=== PATIENT | female | born 1970 | race Caucasian/White ===

== ENCOUNTER 2019-10-16 16:41 | Outpatient (CLI) | payer BC, SELFPAY ==
--- NOTE | ~2019-10-16 | MM_ITS ---
EXAMINATION: MM screening [facility] w issac HISTORY: Screening mammogram TECHNIQUE: Craniocaudal and mediolateral oblique 3-D tomosynthesis images were obtained and synthetic 2-D images were generated. CAD analysis was submitted and interpreted. COMPARISON: Comparison to multiple prior studies sequentially, with oldest reviewed study dated 09/2012. BREAST PARENCHYMAL COMPOSITION: The breasts are heterogeneously dense, which may obscure small masses . FINDINGS: There is no evidence of suspicious mass, calcification, or architectural distortion to sugg est malignancy in either breast. There has been no suspicious interval change. IMPRESSION: 1. No mammographic evidence of malignancy. 2. Recommend routine screening mammography in one year. BI-RADS Category 1: Negative Reviewed, dictated and finalized at location A.
== END 2019-10-16 16:42 | disposition home or self-care (01) ==
LOC: ANHIMG 16:44
PROVIDERS: PCP Student in an Organized Health Care Education/Training Program; Visit Provider Student in an Organized Health Care Education/Training Program
DX: Z12.31 Encounter for screening mammogram for malignant neoplasm of breast (principal)
CPT/HCPCS: 77063; 77067

== ENCOUNTER 2021-05-29 13:21 | Outpatient (CLI) | payer OTHER, SELFPAY ==
--- NOTE | ~2021-05-29 | US_ITS ---
EXAMINATION: US pelvic complete w TV DATE: 05/29/2021 14:12 INDICATION: Evaluate IUD position. Pelvic pain. Comparison:No prior studies for comparison. TECHNIQUE: Multiple transabdominal and endovaginal sonographic images of the pelvis performed. FINDINGS: The uterus measures 9.4 x 4.6 x 5.2 cm. IUD present in the endometrium in expected position . The endometrial complex measures 5 mm. The right ovary measures 2.2 x 1.8 x 2.4 cm and the left ovary measures 3.3 x 1.7 x 1.7 cm. There ar e small follicles in each ovary. Normal doppler signal in both ovaries. There is no free fluid in the pelvis. There are no abnormal masses seen on either side. IMPRESSION: 1. Unremarkable pelvic ultrasound. IUD located in the endometrium. Reviewed, dictated and finalized at location A.
== END 2021-05-29 13:22 ==
PROVIDERS: Visit Provider Student in an Organized Health Care Education/Training Program
DX: Z30.431 Encounter for routine checking of intrauterine contraceptive device (principal); R10.2 Pelvic and perineal pain
CPT/HCPCS: 76830; 76856

== ENCOUNTER 2021-08-04 01:13 | Day surgery (SDC) | payer OTHER, SELFPAY ==
[2021-04-23 08:34] VITALS: BMI 26.6
--- NOTE | 2021-05-07 12:03 | PC.NURSE ---
Patient states no changes in health history or medications since previous phone call. Updated on new arrival times. No questions at this time.
[2021-06-08 13:51] VITALS: BMI 29.0
[2021-07-16 13:21] VITALS: BMI 29.0
[2021-08-04 09:00] VITALS: BP 149/94; PULSE 95; RESP 18; TEMP 36.6; O2SAT 98
[2021-08-04] MEDS: LACTATED RINGERS 1,000 ML 150 ML IV CONT (09:04)
--- NOTE | 2021-08-04 09:15 | PM.HPGS ---
History of Present Illness History of Present Illness Consent: Risks, benefits, and alternatives have been discussed and questions answered. Patient agrees to proceed with procedure. Chief complaint: neoplasm screening Narrative: Tawana Duke is a 50 year old female here for first screening colonoscopy Review of Systems Constitutional: Constitutional: Denies headache(s) and Denies weakness Eyes: Eyes: Denies blurry vision ENT: Reports Normal hearing present, Denies headache(s) and Denies neck pain Cardiovascular: Cardiovascular: Denies chest pain and Denies dyspnea Respiratory: Respiratory: Denies dyspnea Gastrointestinal: Gastrointestinal: Reports no additional gastrointestinal complaints Genitourinary: Genitourinary: Denies dysuria Musculoskeletal: Musculoskeletal: Denies neck pain Integumentary/Breasts: Skin/Breast: Denies dry skin Neurologic: Reports Normal hearing present, Denies headache(s) and Denies weakness Psychiatric: Psychiatric: Denies anxiety Endocrine: Endocrine: Denies change in body appearance Hematologic/Lymphatic: Hematologic/Lymphatic: Denies easy bleeding Allergic/Immunologic: Allergic/Immunologic: Denies urticaria PMFSH Past Medical History Medical History (Updated 08/04/21 @ 09:15 by Govidn Becker MD) Anxiety Colon cancer screening Vaginal delivery x 2 Surgical History Surgical History History of colposcopy 1997 for Dysplasia History of mandibular surgery [place] teeth removed Family History Family History Mother Family history of malignant neoplasm of breast in first degree relative Social History Social History (Updated 07/03/21 @ 07:59 by Allyn Carbone MA) Years smoked: 15 Smoking status: Former smoker Second hand tobacco smoke exposure: No Alcohol intake: current Drinks per week: 2 Living arrangements: alone Spiritual care concerns: No Meds Home Medications and Allergies Home Medications Medication Instructions Recorded Confirmed Type multivitamin 1 tablet PO DAILY 03/24/21 08/04/21 History venlafaxine 75 mg capsule,extended 75 mg PO DAILY 03/24/21 08/04/21 History release 24 hr norethindrone (contraceptive) 0.35 0.35 mg PO DAILY #84 tablet 06/18/21 08/04/21 Rx mg tablet irbesartan 150 mg PO DAILY 08/03/21 08/04/21 History Allergies Allergy/AdvReac Type Severity Reaction Status Date / Time No Known Allergies Allergy Verified 08/04/21 08:59 Vital Signs Vital Signs - 24 hr 08/04/21 09:00 Temperature 97.8 F Pulse Rate 95 Respiratory Rate 18 Blood Pressure 149/94 H Pulse Oximetry 98 Exam Const: General: comfortable and no acute distress HENMT: General nose exam: Normal nares present Eyes: General: appearance normal, both eyes and all related structures Neck: Neck: no JVD Resp: Auscultation: clear to auscultation bilaterally Cardio: Rate: regular rate Rhythm: regular rhythm GI: Inspection: non-distended GI Palp: Yes Soft to palpation Skin: General skin exam: normal color Neuro: General: gait normal Speech: normal speech Extrem: General: normal to inspection Psych: Mental Status: mental status grossly normal Assessment and Plan Assessment and plan (1) Colon cancer screening: Code(s): Z12.11 - Encounter for screening for malignant neoplasm of colon Status: Acute Assessment and Plan: colonoscopy
--- NOTE | 2021-08-04 09:16 | P.PNAN_ITS ---
Anes - Initial Pre Proc Eval Procedure: Operation Date: 08/04/21 10:30 Proposed Procedures p Screening Colonoscopy - Govind Becker MD Date/Time: 08/04/21 09:16 Surgeon: Govind Becker MD Pre Op Diagnosis: neoplasm screening Patient Data Age: 50 Gender: F Height: 1.7 m Weight: 84.3 kg Last Vital Signs Temp 97.8 F 08/04/21 09:00 Pulse 95 08/04/21 09:00 Resp 18 08/04/21 09:00 BP 149/94 H 08/04/21 09:00 Pulse Ox 98 08/04/21 09:00 Allergies Allergy/AdvReac Type Severity Reaction Status Date / Time No Known Allergies Allergy Verified 08/04/21 08:59 Home Medications Medication Instructions Recorded Confirmed Type multivitamin 1 tablet PO DAILY 03/24/21 08/04/21 History venlafaxine 75 mg capsule,extended 75 mg PO DAILY 03/24/21 08/04/21 History release 24 hr norethindrone (contraceptive) 0.35 0.35 mg PO DAILY #84 tablet 06/18/21 08/04/21 Rx mg tablet irbesartan 150 mg PO DAILY 08/03/21 08/04/21 History Patient hx anesthesia problems: none Family hx anesthesia problems: none Results Review: All pre-operative results and documents have been reviewed as part of the pre-operative evaluation. [facility] Past Medical History Medical History (Updated 08/04/21 @ 09:15 by Govind Becker MD) Anxiety Colon cancer screening Vaginal delivery x 2 Surgical History Surgical History History of colposcopy 1997 for Dysplasia History of mandibular surgery [place] teeth removed Family History Family History Mother Family history of malignant neoplasm of breast in first degree relative Social History Social History (Updated 07/03/21 @ 07:59 by Allyn Carbone MA) Years smoked: 15 Smoking status: Former smoker Second hand tobacco smoke exposure: No Alcohol intake: current Drinks per week: 2 Living arrangements: alone Spiritual care concerns: No Anes - Eval Final PreProcedure Day of Procedure 08/04/21 09:16 Patient weight: obese Heart: regular rate and rhythm Lungs: clear to auscultation Airway: Mallampati scale class II Neurological: alert and oriented Last oral intake: >/= 8 hours ASA classification: II Emergent: no Anesthetic plan: proceed Anesthesia type and monitoring: general GIVS and standard monitoring Results Review: All pre-operative results and documents have been reviewed as part of the pre-operative evaluation. Informed Consent: The patient's anesthetic plan and its attendant risks and benefits were discussed with the patient/family/POA. Questions were solicited and answers provided to the satisfaction of the patient/family/POA.
[2021-08-04 09:37] VITALS: BP 125/94; PULSE 92; RESP 18; O2SAT 100
[2021-08-04 09:47] VITALS: BP 142/90; PULSE 81; RESP 20; O2SAT 100
[2021-08-04 09:57] VITALS: BP 147/96; PULSE 82; RESP 18; O2SAT 100
== END 2021-08-04 10:10 | disposition home or self-care (01) ==
PROVIDERS: PCP Emergency Medicine; Visit Provider Internal Medicine Gastroenterology
PROC: 0DJD8ZZ Inspection of Lower Intestinal Tract, Via Natural or Artificial Opening Endoscopic (ICD-10-PCS; CPT 45378; principal; 2021-08-04 10:30)
DX: Z12.11 Encounter for screening for malignant neoplasm of colon (principal); D12.3 Benign neoplasm of transverse colon; K63.5 Polyp of colon; K64.8 Other hemorrhoids; F41.9 Anxiety disorder, unspecified; E66.9 Obesity, unspecified; Z68.29 Body mass index [BMI] 29.0-29.9, adult; Z87.891 Personal history of nicotine dependence
CPT/HCPCS: 45385; 88305; J2704; J7120

== ENCOUNTER → 2022-08-24 14:37 | Outpatient (CLI) | payer BC, SELFPAY ==
--- NOTE | ~2022-08-24 | MM_ITS ---
EXAMINATION: MM screening [facility] w issac HISTORY: Screening mammogram TECHNIQUE: Craniocaudal and mediolateral oblique 3-D tomosynthesis images were obtained and synthetic 2-D images were generated. CAD analysis was submitted and interpreted. COMPARISON: 10/16/2019 bilateral screening mammogram 06/01/2018 bilateral diagnostic mammography and bilateral complete breast ultrasound BREAST PARENCHYMAL COMPOSITION: The breasts are heterogeneously dense, which may obscure small masses . FINDINGS: There is no evidence of suspicious mass, calcification, or architectural distortion to sugg est malignancy in either breast. There has been no suspicious interval change. IMPRESSION: 1. No mammographic evidence of malignancy. 2. Recommend routine screening mammography in one year. BI-RADS Category 1: Negative Reviewed, dictated and finalized at location A. [employer]
== END ==
PROVIDERS: PCP Emergency Medicine; Visit Provider Emergency Medicine
DX: Z12.31 Encounter for screening mammogram for malignant neoplasm of breast (principal)
CPT/HCPCS: 77063; 77067